=== PATIENT | male | born 1945 | race African-American/Black ===

== ENCOUNTER 2018-10-05 09:47 | Inpatient (IN) | payer MEDICARE, OTHER ==
[~2018-10-05] VITALS: Ht 180.3 cm; Wt 94.3 kg
--- NOTE | ~2018-10-05 | EKG ---
[place], [place] ELECTROCARDIOGRAM REPORT NAME: MCKINLEY CONN UNIT #: [id number] ROOM: 425 DOCTOR: GEMMA DRAFT REPORT BIRTHDATE: [birth year] [facility] Test Date: 2018-10-05 Test Time: 14:04:24 Pat Name: MCKINLEY CONN Department: Room: 425 Gender: M Italian Tutor: Karla Belle : 1945 Requested By: LEXIS DOYLE Order Number: [id number] Reading MD: Tessie Richards MD Measurements Intervals [place] Rate: 112 P: [place]: QRS: -47 QRSD: 97 T: 46 QT: 341 QTc: 466 Interpretive Statements Atrial fibrillation Inferior infarct, old No previous ECG available for comparison Electronically Signed On 10-05-2018 15:52:30 PDT by Tessie Richards MD CM:EKGRPT:ELECTROCARDIOGRAM REPORT [id number] 1552 LEXIS MASON DRAFT REPORT LEXIS DOYLE DO
--- NOTE | ~2018-10-05 | ST ---
[place], [place] EXERCISE STRESS TEST REPORT [facility] CONN [id number] UNIT #: [id number] ROOM: 425 DOCTOR: CORBY FIGUEROA,ANI BIRTHDATE: [birth year] DOS: 10/08/2018 LEXISCAN STRESS TEST REASON FOR TEST: Atrial fibrillation. PHYSICAL EXAMINATION: NECK: Supple. LUNGS: Clear anteriorly. HEART: Irregular. PROTOCOL: Lexiscan protocol. Maximum heart rate 142, peak blood pressure 108/52. SYMPTOMS: The patient is chest pain free. EKG: Resting EKG shows atrial fibrillation. Stress EKG showed atrial fibrillation with rapid ventricular rate. No ischemia. CONCLUSION: Clinically, the patient is chest pain free. EKG nonischemic, underlying atrial fibrillation. POST-STRESS COMPLICATIONS: None. The patient received a total of 0.4 mg of Lexiscan. ANI TAVAREZ MD CM:STRESS:EXERCISE STRESS TEST REPORT [id number] ANI TAVAREZ MD
--- NOTE | ~2018-10-05 | PR ---
[place], [place] PROGRESS NOTE NAME: MCKINLEY CONN UNIT #: [id number] ROOM: 425 DOCTOR: CORBY FIGUEROA,ANI BIRTHDATE: [birth year] DOS: 10/07/2018 REASON FOR VISIT: Atrial fibrillation and heart failure. SUBJECTIVE: The patient is feeling better. Denies any chest pain, shortness of breath. No palpitation, dizziness, no syncope, no orthopnea. No nausea, vomiting, diarrhea. No fever and chills. No PND. REVIEW OF SYSTEMS: Review of 10 systems negative except as mentioned above. RHYTHM STRIPS: The patient is in atrial fibrillation with mostly controlled ventricular rates. PHYSICAL EXAMINATION: VITAL SIGNS: Blood pressure 142/90, pulse 68, respiratory rate is 20. Weight 94.3 kilos. GENERAL: Alert, comfortable, in no acute distress. HEENT: Pupils are round and equal. No jaundice. Tongue was moist and pharynx was clear. NECK: Supple, no distended neck veins, no carotid bruit. CHEST: Symmetrical, nontender. LUNGS: Good air entry bilaterally. HEART: Irregularly irregular, grade 1/6 systolic murmur. ABDOMEN: Benign, nontender. Bowel sounds normal. EXTREMITIES: Showed no edema. Distal pulses palpable. SKIN: Warm and dry. No cyanosis, no clubbing. RECTAL: Deferred. GENITOURINARY: Deferred. NEUROLOGIC: The patient is alert with no focal neurologic deficit. MUSCULOSKELETAL: No joint tenderness or swelling. MEDICATIONS AND LABORATORY DATA: Reviewed. IMPRESSION: 1. Atrial fibrillation with rapid ventricular rate, new onset. 2. Acute systolic heart failure. 3. Chronic kidney disease. 4. Hypertension. 5. Alcohol abuse. RECOMMENDATIONS: 1. Continue current medications. 2. Risk factor modification for diet, exercise, weight loss as well as to quit drinking discussed. 3. Lexiscan stress test was scheduled for tomorrow to rule out ischemia. 4. If the patient remains in atrial fibrillation, then a CHINTAN and DC cardioversion were discussed for tomorrow and the risks, benefits, and alternatives were discussed and the patient is agreeable. 5. Continue the current cardiac medications. 6. No family at bedside at time of my examination. [place], [place] PROGRESS NOTE NAME: MCKINLEY CONN UNIT #: [id number] ROOM: 425 DOCTOR: ANI TAVAREZ MD BIRTHDATE: [birth year] ANI TAVAREZ MD CM:PNTRANS 26 8 ANI TAVAREZ MD 10/08/18206 interface
--- NOTE | ~2018-10-05 | EKG ---
[place], [place] ELECTROCARDIOGRAM REPORT NAME: MCKINLEY CONN UNIT #: [id number] ROOM: 425 DOCTOR: GEMMA DRAFT REPORT BIRTHDATE: [birth year] [facility] Test Date: 2018-10-05 Test Time: 16:35:18 Pat Name: MCKINLEY CONN Department: Room: 425 Gender: M Quality Control Representative: Karla Belle : 1945 Requested By: LEXIS DOYLE Order Number: [id number] Reading MD: Tessie Richards MD Measurements Intervals [place] Rate: 120 P: [place]: QRS: -53 QRSD: 98 T: 31 QT: 335 QTc: 474 Interpretive Statements Atrial fibrillation Abnormal R-wave progression, late transition Inferior infarct, old Compared to ECG 10/05/2018 10:03:23 No significant changes Electronically Signed On 10-05-2018 15:52:41 PDT by Tessie Richards MD CM:EKGRPT:ELECTROCARDIOGRAM REPORT [id number] 1552 LEXIS MASON DRAFT REPORT LEXIS DOYLE DO
--- NOTE | ~2018-10-05 | O ---
[place], [place] OPERATIVE NOTE NAME: MCKINLEY CONN UNIT #: [id number] ROOM: 425 DOCTOR: CORBY FIGUEROA,ANI BIRTHDATE: [birth year] DOS: 10/08/2018 PROCEDURE: DC cardioversion. PREOPERATIVE DIAGNOSIS: Atrial fibrillation. POSTOPERATIVE DIAGNOSIS: Atrial fibrillation. IMMEDIATE COMPLICATIONS: None. SEDATION: LMAC sedation. CLINICAL HISTORY: The patient is scheduled for CHINTAN cardioversion due to his symptomatic atrial fibrillation with rapid ventricular rate. The patient was anticoagulated with Eliquis. Risks, complications, and alternatives were discussed and informed consent obtained. OPERATIVE REPORT: The patient was brought to the operative room. He underwent a CHINTAN to rule out intracardiac thrombus. After sedation via anterior and posterior cardioversion patches, the patient is at 200 joules of synchronized biphasic current and was converted to sinus rhythm and maintained in sinus rhythm. The patient's heart rate, heart rhythm, and blood pressures were closely monitored. Post-cardioversion, the patient was alert and oriented. Vital signs were stable and no focal neurologic deficit. CONCLUSIONS: Successful conversion of atrial fibrillation to sinus rhythm with single attempt of 200 joules of synchronized biphasic direct current. ANI TAVAREZ MD CM:OPRECORD:OPERATIVE NOTE [id number] [id number] ANI TAVAREZ MD 10/08/18 1257 interface
--- NOTE | ~2018-10-05 | PR ---
[place], [place] PROGRESS NOTE NAME: MCKINLEY CONN UNIT #: [id number] ROOM: 425 DOCTOR: ANI TAVAREZ MD BIRTHDATE: [birth year] DOS: 10/06/2018 CARDIOLOGY FOLLOWUP VISIT REASON FOR VISIT: Atrial fibrillation and cardiomyopathy. HISTORY OF PRESENT ILLNESS: The patient is feeling better. Denies any chest pain, shortness of breath. No palpitation, no dizziness, no PND, no orthopnea. No nausea, vomiting or diarrhea. REVIEW OF SYSTEMS: Review of 10 systems negative except as mentioned above. PHYSICAL EXAMINATION: VITAL SIGNS: Blood pressure 130/60, pulse 100, respiratory rate was 18, weight 94.3 kg, BMI 29. GENERAL: Alert, comfortable, in no acute distress. HEAD AND NECK: Neck supple, no distended neck veins, no carotid bruit. CHEST: Symmetrical, nontender. LUNGS: Few scattered rhonchi. HEART: Irregularly irregular. Grade 1/6 systolic murmur. ABDOMEN: Benign, nontender. Bowel sounds normal. EXTREMITIES: Showed trace edema. Distal pulses palpable. SKIN: Warm and dry. No cyanosis, no clubbing. RECTAL: Deferred. GENITOURINARY: Deferred. NEUROLOGIC: The patient is alert with no focal neurologic deficit. MEDICATIONS AND LABORATORIES: Reviewed. RHYTHM STRIPS: The patient in atrial fibrillation. IMPRESSION: 1. Atrial fibrillation with rapid ventricular rate, new onset, currently rate controlled. Thyroid function tests are normal. The patient was on Eliquis anticoagulation. 2. Acute systolic heart failure, currently stable. 3. Hypertension. 4. Chronic kidney disease. 5. History of alcohol use. RECOMMENDATIONS: 1. Continue current medications. 2. Risk factor modification discussed. Lexiscan stress was scheduled for Monday. 3. The patient still in atrial fibrillation. I would consider CHINTAN-guided DC cardioversion on Monday if schedule permits. 4. No family at bedside. 5. Above recommendation discussed with the patient. [place], [place] PROGRESS NOTE NAME: MCKINLEY CONN UNIT #: [id number] ROOM: 425 DOCTOR: ANI TAVAREZ MD BIRTHDATE: [birth year] ANI TAVAREZ MD CM:MELISSA 04 1 ANI TAVAREZ MD 10/07/18340 interface
--- NOTE | ~2018-10-05 | EKG ---
[place], [place] ELECTROCARDIOGRAM REPORT NAME: MCKINLEY CONN UNIT #: [id number] ROOM: 425 DOCTOR: GEMMA DRAFT REPORT BIRTHDATE: [birth year] [facility] Test Date: 2018-10-05 Test Time: 10:03:23 Pat Name: MCKINLEY CONN Department: Room: 425 Gender: M Valve Assembler: Karla Belle : 1945 Requested By: LEXIS DOYLE Order Number: [id number] Reading MD: Tessie Richards MD Measurements Intervals [place] Rate: 126 P: [place]: QRS: -46 QRSD: 99 T: 43 QT: 328 QTc: 475 Interpretive Statements Atrial fibrillation Abnormal R-wave progression, late transition Inferior infarct, old No previous ECG available for comparison Electronically Signed On 10-05-2018 13:25:40 PDT by Tessie Richards MD CM:EKGRPT:ELECTROCARDIOGRAM REPORT [id number] 1325 LEXIS MASON DRAFT REPORT LEXIS DOYLE DO
--- NOTE | ~2018-10-05 | PR ---
[place], [place] PROGRESS NOTE NAME: MCKINLEY CONN UNIT #: [id number] ROOM: 425 DOCTOR: CORBY FIGUEROA,ANI BIRTHDATE: [birth year] DOS: 10/08/2018 REASON FOR VISIT: Atrial fibrillation, heart failure. SUBJECTIVE: The patient is feeling better. Denies any chest pain, shortness of breath. No palpitation or dizziness. No PND, no orthopnea. No nausea, vomiting, diarrhea. No fever and chills. No musculoskeletal symptoms. No neurologic symptoms. No genitourinary symptoms. REVIEW OF SYSTEMS: Review of 10 systems negative, except as mentioned above. RHYTHM STRIPS: The patient with atrial fibrillation with occasional rapid ventricular rate. PHYSICAL EXAMINATION: VITAL SIGNS: Blood pressure 120/87, pulse 72, respiratory rate 18, weight 90 kilos. GENERAL: Alert, comfortable, in no acute distress. HEENT: Pupils are round and equal. No jaundice. NECK: Supple, no distended neck veins, no carotid bruit. CHEST: Symmetrical, nontender. LUNGS: Clear to auscultation bilaterally. HEART: Irregularly irregular, grade 1/6 systolic murmur. ABDOMEN: Benign, nontender. Bowel sounds normal. EXTREMITIES: Showed no edema. Distal pulses palpable. SKIN: Warm and dry. No cyanosis, no clubbing. RECTAL: Deferred. GENITOURINARY: Deferred. NEUROLOGIC: The patient is alert with no focal neurologic deficit. LABORATORY DATA: Labs and medications reviewed. Hemoglobin 12.9, creatinine 1.55. IMPRESSION: 1. New-onset atrial fibrillation with rapid ventricular rate. 2. Acute systolic heart failure with ejection fraction 40-45% by echo. 3. Hypertension. 4. Chronic kidney disease. 5. Alcohol use. RECOMMENDATIONS: 1. Continue current medication. 2. Lexiscan stress test today to rule out ischemia. 3. CHINTAN, DC cardioversion later today due to his atrial fibrillation with rapid ventricular rate. 4. Risks, benefits, and complications of CHINTAN and cardioversion discussed and the patient is agreeable. 5. If the stress test is unremarkable and if this cardioversion is successful, possible discharge later today. [place], [place] PROGRESS NOTE NAME: MCKINLEY CONN UNIT #: [id number] ROOM: 425 DOCTOR: CORBY FIGUEROA,ANI BIRTHDATE: [birth year] No family at bedside at the time of examination. ANI TAVAREZ MD CM:PNTRANS [id number] ANI TAVAREZ MD 10/09/18 1613 interface
[~2018-10-05 09:47] MED LIST: AMOXICILLIN500 MG PO; ASPIRIN FOR CHI81 MG PO; HYDROCHLOROTHIZIDE PO; LASIX PO; SIMVASTATIN PO
[2018-10-05 09:53] VITALS: BP 115/90
[2018-10-05] MEDS ORDERED: AMLODIPINE BESY10 MG PO (09:55)
[2018-10-05] MEDS ORDERED: LIPITOR10 MG PO (09:55)
[2018-10-05] MEDS ORDERED: LOSARTAN POTAS100 M1 PO (09:56)
[2018-10-05 10:18] LABS: BASO % 0.5 % (0.0-1.0); EOS # 0.1 10*3/uL (0.0-0.4); EOS % 1.1 % (1.0-4.0); HEMATOCRIT 38.4 % (42.0-52.0); LYMPH # 1.1 10*3/uL (1.3-4.4); LYMPH % 17.1 % (27.0-41.0); MEAN CELL VOLUME 91.2 fl (80.0-94.0); MEAN CORPUSCULAR HGB 30.9 pg (27.0-31.0); MEAN CORPUSCULAR HGB CONC 33.9 g/dl (33.0-37.0); MEAN PLATELET VOLUME 10.6 fl (9.6-12.3); MONO # 0.8 10*3/uL (0.1-1.0); NEUT # 4.2 10*3/uL (2.3-7.9); PLATELET COUNT AUTOMATED 171 10*3/uL (130-400); RED BLOOD COUNT 4.21 10*6/uL (4.50-5.90); RED CELL DISTRI WIDTH 13.6 % (0-14.5); WHITE BLOOD COUNT 6.2 10*3/uL (4.8-10.8)
[2018-10-05 10:32] VITALS: BP 125/76
[2018-10-05 10:37] LABS: ACT PARTIAL THROMBO TIME 24.7 SECONDS (20.0-32.1); INTERNATIONAL NORM RATIO 0.9 (2.0-3.5)
[2018-10-05 10:42] LABS: ALKALINE PHOSPHATASE 79 U/L (45-117); BUN 23 mg/dl (7-24); CHLORIDE 111 mmol/L (98-107); CREATININE 1.51 mg/dL (0.70-1.30); LIPASE 173 U/L (73-393); SGOT/AST 30 IU/L (3-35); SGPT/ALT 34 U/L (12-78); SODIUM 142 mmol/L (136-145); TOTAL PROTEIN 7.1 gm/dL (6.4-8.2)
[2018-10-05 10:43] LABS: TROPONIN I < 0.015 ng/ml (<0.045)
[2018-10-05 11:57] VITALS: BP 115/72
--- NOTE | 2018-10-05 11:57 | NUR ---
NO C/O AT THIS TIME.---SRIDHAR ZULETA RN
--- NOTE | 2018-10-05 12:18 | NUR ---
DR DOYLE IN TO SEE PT AT THIS TIME.---SRIDHAR ZULETA RN
[2018-10-05 12:47] VITALS: BP 104/68
--- NOTE | 2018-10-05 13:15 | NUR ---
A 72, admitted to , under the services of DAVID Navarrete DO with a diagnosis of ATRIAL FIB. Chief complaint is NO COMPLAINTS. Patient arrived via stretcher from ER. Monitor applied. Initial assessment completed. Vital signs taken and recorded. DAVID NAVARRETE DO notified of admission to the unit. Orders received. See assessment for past medical history, medications and allergies. Patient and/or family oriented to unit. [facility] policy reviewed. Clothing/patient valuable form completed. SUMA RAMIREZ
[2018-10-05] MEDS ORDERED: VITAMIN D32000 UNIT PO (13:37)
--- NOTE | 2018-10-05 13:40 | NUR ---
ECHO AT BEDSIDE
--- NOTE | 2018-10-05 13:49 | NUR ---
DR. FIGUEROA'S OFFICE NOTIFIED OF CONSULT.
[2018-10-05 15:31] VITALS: BP 123/78
--- NOTE | 2018-10-05 15:54 | NUR ---
PT WAS UP TO BATHROOM MEDICAL DEVICE ASSEMBLER CALLED AND STATED THAT PT HR WAS 140-160 FOR S SHORT PERIOD OF TIME. BY THE TIME THE RN GOT TO THE ROOM TO CHECK ON PATIENT, PT WAS BACK IN BED. HR 110-130 PT STASTES ASYMPTOMATIC AT THIS TIME. WILL NOTIFY PHYSICIAN
--- NOTE | 2018-10-05 19:58 | NUR ---
ASSUMED CARE OF PATIENT. PATIENT RESTING IN HIS BED AT THIS TIME. ALERT AND ORIENTED. NO S/S OF DISTRESS. CALL LIGHT PLACED WITHIN REACH.
[2018-10-05 20:00] VITALS: BP 119/72
[2018-10-06] VITALS: BP 109/68
[2018-10-06 06:42] LABS: BASO % 0.7 % (0.0-1.0); EOS # 0.1 10*3/uL (0.0-0.4); EOS % 2.4 % (1.0-4.0); HEMATOCRIT 39.2 % (42.0-52.0); HEMOGLOBIN 13.1 g/dl (14.0-18.0); LYMPH # 1.1 10*3/uL (1.3-4.4); LYMPH % 20.9 % (27.0-41.0); MEAN CELL VOLUME 92.2 fl (80.0-94.0); MEAN CORPUSCULAR HGB 30.8 pg (27.0-31.0); MEAN CORPUSCULAR HGB CONC 33.4 g/dl (33.0-37.0); MEAN PLATELET VOLUME 10.9 fl (9.6-12.3); MONO # 0.7 10*3/uL (0.1-1.0); MONO % 13.5 % (3.0-9.0); NEUT # 3.4 10*3/uL (2.3-7.9); NEUT % 62.1 % (47.0-73.0); PLATELET COUNT AUTOMATED 172 10*3/uL (130-400); RED BLOOD COUNT 4.25 10*6/uL (4.50-5.90); RED CELL DISTRI WIDTH 13.8 % (0-14.5); WHITE BLOOD COUNT 5.4 10*3/uL (4.8-10.8)
[2018-10-06 07:04] LABS: BUN 21 mg/dl (7-24); CHLORIDE 110 mmol/L (98-107); CHOLESTEROL 205 mg/dL (<200); CREATININE 1.36 mg/dL (0.70-1.30); PHOSPHOROUS 3.8 mg/dL (2.5-4.9); POTASSIUM 3.9 mmol/L (3.5-5.1); SODIUM 143 mmol/L (136-145); TRIGLYCERIDES 104 mg/dl (<150); VLDL CHOLESTEROL 21 mg/dL (6-40)
[2018-10-06 07:13] LABS: FREE T4 0.87 ng/dl (0.76-1.46); HDL CHOLESTEROL 97 mg/dl (40-60); LDL CHOLESTEROL 87 mg/dL (9-159)
[2018-10-06 08:00] VITALS: BP 130/60
[2018-10-06 12:00] VITALS: BP 119/62
[2018-10-06 15:51] VITALS: BP 111/79
[2018-10-06 16:00] VITALS: BP 132/60
[2018-10-06 20:00] VITALS: BP 139/85
[2018-10-07] VITALS: BP 122/83
[2018-10-07 07:16] LABS: BASO % 0.7 % (0.0-1.0); EOS # 0.1 10*3/uL (0.0-0.4); EOS % 2.2 % (1.0-4.0); HEMATOCRIT 37.3 % (42.0-52.0); HEMOGLOBIN 12.7 g/dl (14.0-18.0); LYMPH # 1.2 10*3/uL (1.3-4.4); LYMPH % 19.7 % (27.0-41.0); MEAN CELL VOLUME 91.6 fl (80.0-94.0); MEAN CORPUSCULAR HGB 31.2 pg (27.0-31.0); MEAN PLATELET VOLUME 11.2 fl (9.6-12.3); MONO # 0.8 10*3/uL (0.1-1.0); MONO % 13.3 % (3.0-9.0); NEUT # 3.8 10*3/uL (2.3-7.9); NEUT % 63.8 % (47.0-73.0); PLATELET COUNT AUTOMATED 172 10*3/uL (130-400); RED BLOOD COUNT 4.07 10*6/uL (4.50-5.90); RED CELL DISTRI WIDTH 13.9 % (0-14.5); WHITE BLOOD COUNT 5.9 10*3/uL (4.8-10.8)
[2018-10-07 07:43] LABS: BUN 20 mg/dl (7-24); CHLORIDE 113 mmol/L (98-107); CREATININE 1.27 mg/dL (0.70-1.30); POTASSIUM 3.9 mmol/L (3.5-5.1); SODIUM 145 mmol/L (136-145)
--- NOTE | 2018-10-07 07:45 | NUR ---
24 HR chart check completed.
[2018-10-07 08:00] VITALS: BP 142/90
--- NOTE | 2018-10-07 08:00 | NUR ---
Patient resting quietly with no c/o discomfort. Respirations easy and regular. Vital signs stable. No overt distress. NINA NAIR
[2018-10-07 12:00] VITALS: BP 115/80
--- NOTE | 2018-10-07 12:00 | NUR ---
Patient resting quietly with no c/o discomfort. Respirations easy and regular. Vital signs stable. No overt distress. NINA NAIR
[2018-10-07 16:00] VITALS: BP 138/60
--- NOTE | 2018-10-07 16:00 | NUR ---
UP IN HALLS W/ . POC EXPLAINED THOROUGHLY TO PT AND .
[2018-10-07 20:00] VITALS: BP 115/62
[2018-10-08] VITALS: BP 120/87
[2018-10-08 06:02] LABS: CREATININE 1.55 mg/dL (0.70-1.30); POTASSIUM 3.8 mmol/L (3.5-5.1)
[2018-10-08 06:14] LABS: BASO % 0.5 % (0.0-1.0); EOS # 0.1 10*3/uL (0.0-0.4); HEMATOCRIT 38.5 % (42.0-52.0); HEMOGLOBIN 12.9 g/dl (14.0-18.0); LYMPH # 1.1 10*3/uL (1.3-4.4); LYMPH % 17.6 % (27.0-41.0); MEAN CELL VOLUME 91.7 fl (80.0-94.0); MEAN CORPUSCULAR HGB 30.7 pg (27.0-31.0); MEAN CORPUSCULAR HGB CONC 33.5 g/dl (33.0-37.0); MEAN PLATELET VOLUME 11.1 fl (9.6-12.3); MONO # 0.7 10*3/uL (0.1-1.0); MONO % 12.1 % (3.0-9.0); NEUT # 4.1 10*3/uL (2.3-7.9); NEUT % 67.5 % (47.0-73.0); PLATELET COUNT AUTOMATED 183 10*3/uL (130-400); RED CELL DISTRI WIDTH 13.9 % (0-14.5); WHITE BLOOD COUNT 6.1 10*3/uL (4.8-10.8)
--- NOTE | 2018-10-08 08:25 | NUR ---
PT OFF OF FLOOR FOR STRESS TEST.
--- NOTE | 2018-10-08 09:00 | NUR ---
Telegraph Printer Mechanic in to talk to patient. Patient states lives at home with . There are few steps in the home. Physician: katerine sawyer Pharmacy: [facility] Home health services: none Patient's level of ADLs: INDEPENDENT Patient has working utilities: all workingnone DME: none Follow-up physician's appointment after d/c: will be made by hospitalist nurse director upon discharge Does patient want to access PORTAL?: no Discharge plan discussed with patient patient lives at home with , stated he was independent in adls and ambulation, patient states he will be going home when able and denies any home need. CHANDRIKA BERNAL
--- NOTE | 2018-10-08 09:36 | NUR ---
INFORMED CONSENT SIGNED FOR LEXISCAN STRESS TEST WITH DR. TAVAREZ. RESTING EKG A-FIB, HR 109, BP 114/66. PULSE OX 100% AND LUNGS CLEAR. COMPLETED ONE MINUTE OF LEXISCAN PROTOCOL RECEIVING LEXISCAN 0.4MG OVER 10 SECONDS. NO ARRHYTHMIAS OR ST CHANGES NOTED. PT C/O NAUSEA AND WARM FEELING. LAST RECOVERY HR 123, BP 106/54. WAITING NUCLEAR SCANNING IN STABLE CONDITION.
[2018-10-08 12:05] VITALS: BP 92/51
[2018-10-08 12:20] VITALS: BP 90/55
--- NOTE | 2018-10-08 12:22 | NUR ---
REPORT ON PT RECEIVED FROM SURGERY NURSE.
[2018-10-08 12:33] VITALS: BP 99/61
--- NOTE | 2018-10-08 12:44 | NUR ---
PT RETURNS FROM SURGERY.
[2018-10-08 12:56] VITALS: BP 110/62
--- NOTE | 2018-10-08 12:58 | NUR ---
PT CAUGHT UP ON AM MEDICATIONS AT THIS TIME.
[2018-10-08] MEDS ORDERED: METOPROLOL SUCC25 M2 PO (15:46)
[2018-10-08] MEDS ORDERED: ELIQUIS5 M1 PO (15:46)
--- NOTE | 2018-10-08 16:00 | NUR ---
Discharge instructions reviewed with patient/family. Patient receptive and verbalizes understanding. Follow-up care arranged. Written instructions given to patient/family. REBEKAH MCCALL
== END 2018-10-08 16:00 | disposition home or self-care (01) | DRG 308 ==
LOC: ED 09:47 → 4E 12:37
PROVIDERS: Emergency Medicine; Family Medicine; Internal Medicine; ADMIT Internal Medicine
PROC: B24BZZ4 Ultrasonography of Heart with Aorta, Transesophageal (ICD-10-PCS; principal; 2018-10-08)
PROC: 5A2204Z Restoration of Cardiac Rhythm, Single (ICD-10-PCS; principal; 2018-10-08)
PROC: 3E073KZ Introduction of Other Diagnostic Substance into Coronary Artery, Percutaneous Approach (ICD-10-PCS; principal; 2018-10-08)
PROC: 4A02XM4 Measurement of Cardiac Total Activity, External Approach (ICD-10-PCS; principal; 2018-10-08)
DX: I48.91 Unspecified atrial fibrillation (principal); I50.21 Acute systolic (congestive) heart failure; I13.0 Hypertensive heart and chronic kidney disease with heart failure and stage 1 through stage 4 chronic kidney disease, or unspecified chronic kidney disease; N18.3 Chronic kidney disease, stage 3 (moderate); D64.9 Anemia, unspecified; E83.51 Hypocalcemia; E83.41 Hypermagnesemia; I07.1 Rheumatic tricuspid insufficiency; I42.9 Cardiomyopathy, unspecified; E80.6 Other disorders of bilirubin metabolism; D72.810 Lymphocytopenia; E78.5 Hyperlipidemia, unspecified; F10.10 Alcohol abuse, uncomplicated; R73.9 Hyperglycemia, unspecified; Z87.891 Personal history of nicotine dependence; Z90.79 Acquired absence of other genital organ(s); Z82.3 Family history of stroke; Z82.49 Family history of ischemic heart disease and other diseases of the circulatory system; Z79.82 Long term (current) use of aspirin; Z79.899 Other long term (current) drug therapy; Z71.41 Alcohol abuse counseling and surveillance of alcoholic

== ENCOUNTER 2019-08-17 12:19 | Emergency (ER) | payer MEDICARE, OTHER ==
[~2019-08-17] VITALS: Ht 180.3 cm; Wt 99.8 kg
[~2019-08-17 12:19] MED LIST changes: +AMLODIPINE BESY10 MG PO; +ELIQUIS5 M1 PO; +LIPITOR10 MG PO; +LOSARTAN POTAS100 M1 PO; +METOPROLOL SUCC25 M2 PO; +VITAMIN D32000 UNIT PO
[2019-08-17] MEDS ORDERED: DOXYCYCLINE100 M3 PO (12:42)
== END 2019-08-17 13:03 | disposition home or self-care (01) ==
LOC: ED 12:19
DX: J86.9 Pyothorax without fistula (principal); I10 Essential (primary) hypertension; E78.00 Pure hypercholesterolemia, unspecified; Z79.899 Other long term (current) drug therapy

== ENCOUNTER → 2021-06-22 | Outpatient (CLI) | payer MEDICARE, OTHER ==
[~2021-06-22] MED LIST changes: +DOXYCYCLINE100 M3 PO
== END | disposition home or self-care (01) ==
LOC: CARD 13:36
PROVIDERS: ATTEND Internal Medicine Cardiovascular Disease
DX: I37.1 Nonrheumatic pulmonary valve insufficiency (principal); R94.31 Abnormal electrocardiogram [ECG] [EKG]; I11.9 Hypertensive heart disease without heart failure; E51.9 Thiamine deficiency, unspecified; I51.9 Heart disease, unspecified; I48.0 Paroxysmal atrial fibrillation; I31.3 Pericardial effusion (noninflammatory)

== ENCOUNTER 2024-04-02 15:02 | Emergency (ER) | payer MEDICARE, OTHER ==
[~2024-04-02] VITALS: Ht 180.3 cm; Wt 105.7 kg
== END 2024-04-02 19:33 | disposition home or self-care (01) ==
LOC: ED 15:02
DX: H11.31 Conjunctival hemorrhage, right eye (principal); Z79.899 Other long term (current) drug therapy; Z79.82 Long term (current) use of aspirin; Z79.2 Long term (current) use of antibiotics; Z87.891 Personal history of nicotine dependence